=== PATIENT | male | born 1965 | race Caucasian/White ===

== ENCOUNTER → 2019-11-13 | Outpatient (CLI) | payer BC | LOC: COL.LAB 08:24 | DX: Z20.828 Contact with and (suspected) exposure to other viral communicable diseases (principal) ==

== ENCOUNTER → 2019-11-16 | Outpatient (CLI) | payer BC | LOC: COL.LAB 05:59 | DX: U07.1 COVID-19 (principal) ==

== ENCOUNTER → 2019-11-21 | Outpatient (CLI) | payer BC | LOC: COL.LAB 11:26 | DX: U07.1 COVID-19 (principal) ==

== ENCOUNTER → 2019-11-22 | Outpatient (CLI) | payer BC | LOC: COL.LAB 08:37 | DX: U07.1 COVID-19 (principal) ==